=== PATIENT | male | born 1955 | race African-American/Black ===

== ENCOUNTER 2016-09-28 23:49 | Emergency (ER) | payer BC, OTHER ==
[~2016-09-28] VITALS: Ht 190.5 cm; Wt 122.5 kg
[2016-09-29] MEDS ORDERED: ACETAMINOPHEN 325 MG TAB PO ONE ×2 (00:16→00:30)
[2016-09-29 05:02] VITALS: BP 138/85
[2016-09-29] MEDS ORDERED: SUMAtriptan SUCCINATE 25 MG TAB PO ONE (05:45)
[2016-09-29] MEDS ORDERED: LIDOCAINE VISCOUS 2% 15ML UD PO ONE (06:00)
[2016-09-29] MEDS ORDERED: cefTRIAXone SOD 1,000 MG VL IM ONE (06:00)
== END 2016-09-29 06:31 | disposition home or self-care (01) ==
LOC: ER 09-29
DX: J03.90 Acute tonsillitis, unspecified (principal); I10 Essential (primary) hypertension; R51 Headache
CPT/HCPCS: 70450; 96372; 99284; J0696